=== PATIENT | female | born 1990 | race Caucasian/White ===

== ENCOUNTER 2024-01-26 08:23 | Outpatient (CLI) | payer BC | END 2024-01-26 08:24 | disposition home or self-care (01) | LOC: CSHSLEEP 08:23 | PROVIDERS: ATTEND Internal Medicine Critical Care Medicine | DX: G47.419 Narcolepsy without cataplexy (principal); R53.83 Other fatigue; G47.33 Obstructive sleep apnea (adult) (pediatric); G47.10 Hypersomnia, unspecified | CPT/HCPCS: 95810 ==

== ENCOUNTER 2024-01-27 08:27 | Outpatient (CLI) | payer BC | END 2024-01-27 08:28 | disposition home or self-care (01) | LOC: CSHSLEEP 08:27 | PROVIDERS: ATTEND Internal Medicine Critical Care Medicine | DX: G47.419 Narcolepsy without cataplexy (principal); R53.83 Other fatigue | CPT/HCPCS: 95805 ==